=== PATIENT | female | born 1990 | race Two or more races ===

== ENCOUNTER 2019-11-04 08:29 | Emergency (ER) | payer MEDICAID, OTHER ==
[~2019-11-04] VITALS: Ht 157.5 cm; Wt 61.6 kg
[2019-11-04 08:32] VITALS: BP 118/71
[2019-11-04] MEDS ORDERED: CLIN-90 PO (09:43)
== END 2019-11-04 10:10 | disposition home or self-care (01) ==
LOC: ER 08:30
DX: J02.8 Acute pharyngitis due to other specified organisms (principal); K08.89 Other specified disorders of teeth and supporting structures; Z88.0 Allergy status to penicillin
CPT/HCPCS: 87081; 87880; 99283

== ENCOUNTER 2019-12-11 17:25 | Emergency (ER) | payer MEDICAID, OTHER ==
[~2019-12-11] VITALS: Ht 157.5 cm; Wt 63.6 kg
[~2019-12-11 17:25] MED LIST: CLIN-90 PO
[2019-12-11] MEDS ORDERED: AZIT-63 PO (20:34)
[2019-12-11] MEDS ORDERED: azithromycin 250mg tablet PO ONE (20:35)
[2019-12-11 20:44] VITALS: BP 119/80
== END 2019-12-11 20:49 | disposition home or self-care (01) ==
LOC: ER 17:26
DX: J20.9 Acute bronchitis, unspecified (principal); F17.210 Nicotine dependence, cigarettes, uncomplicated; Z88.0 Allergy status to penicillin; Z79.2 Long term (current) use of antibiotics
CPT/HCPCS: 99283